=== PATIENT | female | born 1940 | race Caucasian/White ===

== ENCOUNTER 2017-10-29 09:13 | Day surgery (SDC) | payer MEDICARE, BC ==
[~2017-10-29] VITALS: Ht 172.7 cm; Wt 94.6 kg
[~2017-10-29 09:13] MED LIST: ASCO10004 PO; ATOR20TA PO; CHOL200024 PO; CITA10TA4 PO; FISH1CAP PO; MULT-516 PO; PROP10TA PO; RIVA20TA PO; VITA1TAB19 PO
[2017-10-29] MEDS ORDERED: FENTANYL PF 100 MCG/2ML ONE (09:55)
[2017-10-29] MEDS ORDERED: MIDAZOLAM 1 MG/ML, 2ML ONE (09:55)
[2017-10-29] MEDS ORDERED: LACTATED RINGERS 1,000 ML IV SCH (10:10)
[2017-10-29] MEDS ORDERED: HYDROmorphone 1 MG/ML, 1ML IV PRN (10:30)
[2017-10-29] MEDS ORDERED: hydrALAzine 20 MG/ML, 1ML IV PRN (10:30)
[2017-10-29] MEDS ORDERED: LABETALOL 5MG/ML, 20ML IV PRN (10:30)
[2017-10-29] MEDS ORDERED: FENTANYL PF 100 MCG/2ML IV PRN (10:30)
[2017-10-29] MEDS ORDERED: ONDANSETRON ODT 8 MG PO ONE (10:30)
[2017-10-29] MEDS ORDERED: FAMOTIDINE 20 MG TABLET PO ONE (10:30)
[2017-10-29] MEDS ORDERED: MEPERIDINE/PF 25MG/0.5ML IVPush PRN (10:30)
[2017-10-29] MEDS ORDERED: OXYcodone 5 MG/5 ML ORAL.SOL UDC PO PRN (10:30)
[2017-10-29] MEDS ORDERED: ONDANSETRON ODT 8 MG PO PRN (10:30)
[2017-10-29] MEDS ORDERED: MORPHINE SULFATE 4 MG/ML, 1ML IVPush PRN (10:30)
[2017-10-29] MEDS ORDERED: ACETAMINOPHEN 500 MG TABLET PO ONE (10:30)
[2017-10-29] MEDS ORDERED: PROMETHAZINE 12.5 MG SUPP PR PRN (10:30)
[2017-10-29 10:33] VITALS: BP 173/89
[2017-10-29] MEDS ORDERED: DEXAMETHASONE 4 MG/ML, 1ML ONE (10:42)
[2017-10-29] MEDS ORDERED: CEFAZOLIN 1,000 MG ONE ×3 (10:43→10:44)
[2017-10-29] MEDS ORDERED: PROPOFOL 10 MG/ML, 20ML ONE (10:44)
[2017-10-29] MEDS ORDERED: MITOMYCIN 40 MG in STERILE WATER 40 ML INTVESIC ONE (11:00)
[2017-10-29] MEDS ORDERED: ROCURONIUM 10MG/ML,5ML ONE (11:09)
== END 2017-10-29 15:15 ==
LOC: OUT 09:13
PROVIDERS: ATTEND Urology
DX: C67.9 Malignant neoplasm of bladder, unspecified (principal)
CPT/HCPCS: 51720; 52235; 88305; J0690; J1100; J2250; J2704; J3010; J7120; J9280; Q0162